=== PATIENT | female | born 1995 | race Hispanic/Latino ===

== ENCOUNTER 2018-04-29 05:09 | Emergency (ER) | payer MEDICAID, OTHER | END 2018-04-29 05:39 | LOC: EDH 05:09 | DX: Z02.83 Encounter for blood-alcohol and blood-drug test (principal) ==

== ENCOUNTER 2019-02-04 16:10 | Emergency (ER) | payer OTHER ==
[2019-02-04] MEDS ORDERED: SODIUM CHLORIDE 0.9% 1000ML 1,000 ML IV ONE (17:06)
[2019-02-04 17:11] LABS: BASOPHILS % (AUTO) 0.6 % (0.0-5.0); EOSINOPHILS % (AUTO) 1.3 % (0.0-8.0); HEMATOCRIT 38.3 % (36-48); LYMPHOCYTES % (AUTO) 23.3 % (21.0-51.0); MEAN CORPUSCULAR HGB CONC 33.2 g/dL (32.0-36.0); MEAN CORPUSCULAR VOLUME 84.6 fL (79-99); NEUTROPHILS % (AUTO) 68.8 % (40.0-77.0); PLATELET COUNT (AUTO) 403 K/uL (130-400); RED BLOOD CELL COUNT(AUTO) 4.52 MIL/uL (4.00-5.50); RED CELL DISTRIBUTION WIDTH 14.2 % (11.0-15.5); WHITE BLOOD COUNT (AUTO) 15.5 K/uL (4.8-10.8)
[2019-02-04 17:12] LABS: APPEARANCE,URINE SL CLOUDY (CLEAR); BILIRUBIN,URINE NEGATIVE (NEGATIVE); COLOR,URINE YELLOW (YELLOW); GLUCOSE, URINE (UA) >=1000 mg/dL (NEGATIVE); KETONES,URINE 5 mg/dL (NEGATIVE); LEUKOCYTE ESTERASE ,URINE SMALL (NEGATIVE); NITRATE,URINE NEGATIVE (NEGATIVE); OCCULT BLOOD,URINE TRACE-INTACT (NEGATIVE); PROTEIN,URINE NEGATIVE (NEGATIVE); UROBILINOGEN,URINE 0.2 mg/dL (0.2-1.0)
[2019-02-04 17:21] LABS: HCG,QUAL RESULT POSITIVE (NEGATIVE)
[2019-02-04 17:23] LABS: CREATININE 0.8 mg/dL (0.5-1.5); POTASSIUM 3.7 mmol/L (3.5-5.1)
[2019-02-04 17:27] LABS: ALBUMIN 3.3 g/dL (3.5-5.0); BILIRUBIN,TOTAL 0.1 mg/dL (0.2-1.0); TOTAL PROTEIN, SERUM 7.3 g/dL (6.0-8.3)
[2019-02-04 17:29] LABS: BACTERIA,URINE Few /HPF (None Seen); SQUAMOUS EPITHELIAL CELL,UR Few /HPF (0-2); WBC,URINE 26-50 /HPF (0-1)
[2019-02-04] MEDS ORDERED: CEFTRIAXONE SODIUM 1 GM ONE (18:36)
== END 2019-02-04 19:02 | disposition home or self-care (01) ==
LOC: EDH 16:10
DX: O23.11 Infections of bladder in pregnancy, first trimester (principal); E11.9 Type 2 diabetes mellitus without complications; Z3A.01 Less than 8 weeks gestation of pregnancy
CPT/HCPCS: 36415; 76856; 80053; 81001; 81025; 82948; 83690; 84702; 85025; 87077; 87088; 87186; 96374; 99285; J0696; J7030

== ENCOUNTER 2019-02-22 12:10 | Observation (INO) | payer OTHER ==
[~2019-02-22] VITALS: Ht 157.5 cm; Wt 90.5 kg
[2019-02-22 12:33] VITALS: BP 121/65
--- NOTE | 2019-02-22 12:33 | NUR ---
SPOKE WITH CARIDAD SHELTON TO INFORM ON 272 GLUCOSE WHILE BEING ADMITTED. NO NEW ORDERS RECEIVED.
--- NOTE | 2019-02-22 12:50 | NUR ---
EDUCATION EDUCATED PATIENT ON HOW TO DRAW UP INSULIN AND ADMINISTRATION(LOCATIONS AND TECHNIQUES) . HANDOUTS HIGHLIGHTED AND REVIEWED WITH PATIENT. DEMONSTRATION ON HOW TO DRAW UP INSULIN WITH SALINE. POSITIVE PATIENT TEACH BACK UTILIZED.
[2019-02-22] MEDS ORDERED: GLYB5TAB8 PO (12:57)
[2019-02-22 16:05] VITALS: BP 117/62
[2019-02-22] MEDS: INSULIN HUMULIN R 100 UNIT/ML 3ML SQ SCH (16:27)
[2019-02-22] MEDS: INSULIN NPH 100 UNIT/ML 3ML SQ SCH (16:28)
--- NOTE | 2019-02-22 16:28 | NUR ---
INSULIN ADMINISTERED ORDERED. DEMONSTRATION GIVEN TO PATIENT ON HOW TO DRAW UP AND ADMINISTER. PATIENT VOICED UNDERSTANDING.
[2019-02-22] MEDS ORDERED: ACETAMINOPHEN 325 MG TAB PO PRN (16:45)
[2019-02-22 19:29] VITALS: BP 123/75
[2019-02-22 23:20] VITALS: BP 126/77
[2019-02-23 03:43] VITALS: BP 133/71
[2019-02-23] MEDS: INSULIN NPH 100 UNIT/ML 3ML SQ SCH ×2 (07:26→16:42)
[2019-02-23] MEDS: INSULIN HUMULIN R 100 UNIT/ML 3ML SQ SCH ×3 (07:27→16:43)
[2019-02-23 07:47] VITALS: BP 121/75
--- NOTE | 2019-02-23 08:10 | NUR ---
HOWIE BURDICK CNM ROUNDING ON PATIENT. POC DISCUSSED. INSULIN ADJUSTED (REGULAR 14 UNITS NPH1 UNITS AM/PM) 5 UNITS REGULAR ACLUNCH. MAIN ENTREE COOK AND CASHIER CONSULT ORDERED.
--- NOTE | 2019-02-23 08:25 | NUR ---
CONSULT SPOKE WITH 3RD FLOOR DIAMOND SIZER CAROL. NO CAR SERVICER AVAILABLE IN HOSPITAL.
--- NOTE | 2019-02-23 10:49 | NUR ---
DC PLAN VISITED WITH PATIENT. LIVES WITH PARENTS. PATIENT INDEPENDENT ABLE TO PERFORM ADL'S. PATIENT HAS NO SERVICES OR DME'S. FEELS SAFE TO RETURN HOME. Addendum: 02/23/19 at 1058 by ANUJ GODWIN RN CM Amended: Links added.
--- NOTE | 2019-02-23 10:56 | NUR ---
Gestation al diabetes diet education: Printed handouts provided on Gestational diabetes. Reviewed CHO counting, portion control and food alternatives with patient. Pt. verbalized understanding. Addendum: 02/23/19 at [address] Amended: Links added.
--- NOTE | 2019-02-23 10:57 | NUR ---
Nutrition Intervention: Nutrition consult for diabetes education. Pt. 5 weeks IUP. Pt. reports current wt. of 200# was before . Pt. on 75gm CCD diet with good p.o. intake, as per pt. Labs reviewed(BG 137). LBM: 02/22/19. BMI: 36.8, Obesity Grade 2. Pt. educated on Gestational Diabetes Nutrition Therapy diet and provided with education material. Pt. verbalized understanding. Recommendations: 1) Continue current diet. 2) Gestational diabetes nutrition therapy diet education given to patient. 3) Continue to monitor pt's nutritional status. 4) Consult RD as nutrition concerns arise.
[2019-02-23 11:16] VITALS: BP 121/73
[2019-02-23 15:17] VITALS: BP 118/70
[2019-02-23 20:10] VITALS: BP 124/83
[2019-02-24 00:07] VITALS: BP 108/74
[2019-02-24 03:37] VITALS: BP 123/59
[2019-02-24 07:20] VITALS: BP 100/76
--- NOTE | 2019-02-24 07:30 | NUR ---
PT. ISIS UP BOTH AM INSULIN AND INJECTED SELF; WITNESSED BY ALVINO MEJIA AND SANTANA ALCALA. PT. DID IT PERFECTLY.
[2019-02-24] MEDS: INSULIN NPH 100 UNIT/ML 3ML SQ SCH (07:31)
[2019-02-24] MEDS: INSULIN HUMULIN R 100 UNIT/ML 3ML SQ SCH ×2 (07:32→12:06)
[2019-02-24 11:41] VITALS: BP 121/90
--- NOTE | 2019-02-24 12:00 | NUR ---
PT WASHED HANDS AND ISIS UP 5 UNITS OF REGULAR INSULIN AND SELF ADMINISTERED TO ABDOMEN SQ.
--- NOTE | 2019-02-24 13:10 | NUR ---
PHYSICIAN ROUNDING DR. LLANES AT BEDSIDE TO ASSESS AND TALK TO PT. NEW ORDERS RECEIVED FOR DISCHARGE.
--- NOTE | 2019-02-24 13:55 | NUR ---
DISCHARGE PT LEFT UNIT AMBULATING, ACCOMPANIED BY SIGNIFICANT OTHER. DENIED PAIN AND HAD NO COMPLAINTS. TRANSPORTED BY PERSONAL VEHICLE.
== END 2019-02-24 13:55 | disposition home or self-care (01) ==
LOC: WSH 12:10
PROVIDERS: ADMIT Obstetrics & Gynecology; ATTEND Obstetrics & Gynecology
DX: O24.911 Unspecified diabetes mellitus in pregnancy, first trimester (principal); O09.891 Supervision of other high risk pregnancies, first trimester; O99.211 Obesity complicating pregnancy, first trimester; O23.91 Unspecified genitourinary tract infection in pregnancy, first trimester; Z79.4 Long term (current) use of insulin; Z3A.01 Less than 8 weeks gestation of pregnancy
CPT/HCPCS: 82948 ×14; 96372 ×3; G0378 ×50; J1815 ×9

== ENCOUNTER 2019-03-01 15:43 | Emergency (ER) | payer OTHER, MEDICAID ==
[2019-03-01 16:26] LABS: BASOPHILS % (AUTO) 0.5 % (0.0-5.0); EOSINOPHILS % (AUTO) 4.2 % (0.0-8.0); HEMATOCRIT 35.4 % (36-48); LYMPHOCYTES % (AUTO) 28.1 % (21.0-51.0); MEAN CORPUSCULAR HEMOGLOBIN 27.9 pg (27.0-33.0); MEAN CORPUSCULAR HGB CONC 33.1 g/dL (32.0-36.0); MEAN CORPUSCULAR VOLUME 84.4 fL (79-99); MONOCYTES % (AUTO) 6.5 % (3.0-13.0); NEUTROPHILS % (AUTO) 60.7 % (40.0-77.0); PLATELET COUNT (AUTO) 404 K/uL (130-400); RED CELL DISTRIBUTION WIDTH 13.8 % (11.0-15.5); WHITE BLOOD COUNT (AUTO) 12.3 K/uL (4.8-10.8)
[2019-03-01 16:46] LABS: CREATININE 0.6 mg/dL (0.5-1.5)
[2019-03-01 17:00] LABS: APPEARANCE,URINE Clear (CLEAR); BILIRUBIN,URINE Negative (NEGATIVE); COLOR,URINE Yellow (YELLOW); GLUCOSE, URINE (UA) Negative (NEGATIVE); KETONES,URINE Negative (NEGATIVE); LEUKOCYTE ESTERASE ,URINE Moderate (NEGATIVE); NITRATE,URINE Negative (NEGATIVE); OCCULT BLOOD,URINE Large (NEGATIVE); PROTEIN,URINE Negative (NEGATIVE); UROBILINOGEN,URINE 0.2 mg/dL (0.2-1.0)
[2019-03-01 17:22] LABS: RBC,URINE 0-1 /HPF (0-1)
[2019-03-01 17:23] LABS: BACTERIA,URINE Few /HPF (None Seen); SQUAMOUS EPITHELIAL CELL,UR Few /HPF (0-2)
[2019-03-01 17:24] LABS: YEAST,URINE BUDDING Rare /HPF (None Seen)
== END 2019-03-01 19:16 | disposition home or self-care (01) ==
LOC: EDH 15:43
DX: O20.0 Threatened abortion (principal); E11.9 Type 2 diabetes mellitus without complications; Z3A.01 Less than 8 weeks gestation of pregnancy
CPT/HCPCS: 36415; 76801; 80048; 81001; 84702; 85025; 86900; 86901

== ENCOUNTER 2019-03-07 10:57 | Emergency (ER) | payer OTHER, MEDICAID ==
[2019-03-07] MEDS ORDERED: ACETAMINOPHEN 325 MG TAB ONE (11:30)
[2019-03-07 11:39] LABS: BASOPHILS % (AUTO) 0.5 % (0.0-5.0); EOSINOPHILS % (AUTO) 2.5 % (0.0-8.0); LYMPHOCYTES % (AUTO) 22.9 % (21.0-51.0); MEAN CORPUSCULAR HEMOGLOBIN 28.1 pg (27.0-33.0); MEAN CORPUSCULAR HGB CONC 33.3 g/dL (32.0-36.0); MEAN CORPUSCULAR VOLUME 84.2 fL (79-99); MONOCYTES % (AUTO) 5.9 % (3.0-13.0); NEUTROPHILS % (AUTO) 68.2 % (40.0-77.0); NUCLEATED RED BLOOD CELLS 0.1 % (0.0-0.19); PLATELET COUNT (AUTO) 403 K/uL (130-400); RED BLOOD CELL COUNT(AUTO) 4.27 MIL/uL (4.00-5.50); RED CELL DISTRIBUTION WIDTH 13.2 % (11.0-15.5); WHITE BLOOD COUNT (AUTO) 13.2 K/uL (4.8-10.8)
== END 2019-03-07 12:49 | disposition home or self-care (01) ==
LOC: EDH 10:57
DX: O20.0 Threatened abortion (principal); E11.9 Type 2 diabetes mellitus without complications; Z3A.09 9 weeks gestation of pregnancy
CPT/HCPCS: 36415; 84702; 85025

== ENCOUNTER 2019-10-03 16:58 | Emergency (ER) | payer OTHER, MEDICAID ==
[2019-10-03 17:44] LABS: APPEARANCE,URINE Clear (CLEAR); BILIRUBIN,URINE Negative (NEGATIVE); COLOR,URINE Yellow (YELLOW); GLUCOSE, URINE (UA) TRACE mg/dL (NEGATIVE); KETONES,URINE Negative (NEGATIVE); LEUKOCYTE ESTERASE ,URINE Small (NEGATIVE); NITRATE,URINE Negative (NEGATIVE); OCCULT BLOOD,URINE Negative (NEGATIVE); PH,URINE 5.5 (5.0-8.0); PROTEIN,URINE Negative (NEGATIVE); UROBILINOGEN,URINE 0.2 mg/dL (0.2-1.0)
[2019-10-03 17:53] LABS: BASOPHILS % (AUTO) 0.3 % (0.0-5.0); EOSINOPHILS % (AUTO) 1.3 % (0.0-8.0); HEMATOCRIT 37.8 % (36-48); LYMPHOCYTES % (AUTO) 29.9 % (21.0-51.0); MEAN CORPUSCULAR HEMOGLOBIN 26.1 pg (27.0-33.0); MEAN CORPUSCULAR VOLUME 81.5 fL (79-99); MONOCYTES % (AUTO) 4.6 % (3.0-13.0); NEUTROPHILS % (AUTO) 63.6 % (40.0-77.0); PLATELET COUNT (AUTO) 453 K/uL (130-400); RED BLOOD CELL COUNT(AUTO) 4.64 MIL/uL (4.00-5.50); RED CELL DISTRIBUTION WIDTH 13.3 % (11.0-15.5); WHITE BLOOD COUNT (AUTO) 14.9 K/uL (4.8-10.8)
[2019-10-03 17:55] LABS: HCG,QUAL RESULT NEGATIVE (NEGATIVE)
[2019-10-03 18:02] LABS: CREATININE 0.7 mg/dL (0.5-1.5); POTASSIUM 3.8 mmol/L (3.5-5.1)
[2019-10-03] MEDS ORDERED: MORPHINE SULFATE 2 MG/ML 1ML SYG ONE (18:05)
[2019-10-03] MEDS ORDERED: ONDANSETRON HCL 4 MG/2 ML VIAL ONE (18:05)
[2019-10-03 18:07] LABS: ALBUMIN 3.8 g/dL (3.5-5.0); BILIRUBIN,TOTAL 0.3 mg/dL (0.2-1.0); TOTAL PROTEIN, SERUM 7.9 g/dL (6.0-8.3)
[2019-10-03 18:08] LABS: BACTERIA,URINE Few /HPF (None Seen)
[2019-10-03 18:09] LABS: RBC,URINE None Seen /HPF (0-1)
[2019-11-02] MEDS ORDERED: GLYB1TAB32 PO (16:11)
[2019-11-02] MEDS ORDERED: INSU100V37 SQ (16:11)
== END 2019-10-03 20:24 | disposition home or self-care (01) ==
LOC: EDH 16:58
DX: K52.9 Noninfective gastroenteritis and colitis, unspecified (principal); K80.20 Calculus of gallbladder without cholecystitis without obstruction; E11.9 Type 2 diabetes mellitus without complications
CPT/HCPCS: 36415; 76705; 80053; 81001; 81025; 83690; 85025; 96374; 96375; 99284; J2405

== ENCOUNTER 2019-11-05 07:30 | Day surgery (SDC) | payer OTHER, MEDICAID ==
[2019-10-31 10:07] LABS: BASOPHILS % (AUTO) 0.3 % (0.0-5.0); EOSINOPHILS % (AUTO) 2.6 % (0.0-8.0); HEMATOCRIT 36.2 % (36-48); LYMPHOCYTES % (AUTO) 26.7 % (21.0-51.0); MEAN CORPUSCULAR HEMOGLOBIN 25.7 pg (27.0-33.0); MEAN CORPUSCULAR HGB CONC 31.2 g/dL (32.0-36.0); MEAN CORPUSCULAR VOLUME 82.5 fL (79-99); MONOCYTES % (AUTO) 5.5 % (3.0-13.0); NEUTROPHILS % (AUTO) 64.6 % (40.0-77.0); PLATELET COUNT (AUTO) 480 K/uL (130-400); RED BLOOD CELL COUNT(AUTO) 4.39 MIL/uL (4.00-5.50); RED CELL DISTRIBUTION WIDTH 13.3 % (11.0-15.5); WHITE BLOOD COUNT (AUTO) 13.9 K/uL (4.8-10.8)
[2019-10-31 10:29] LABS: INR 0.98 (0.85-1.15); PARTIAL THROMBOPLASTIN TIME 28.3 SEC (26.3-35.5); PROTHROMBIN TIME 10.6 SEC (9.6-11.6)
[2019-10-31 10:32] LABS: ALBUMIN 3.4 g/dL (3.5-5.0); BILIRUBIN,TOTAL 0.2 mg/dL (0.2-1.0); CREATININE 0.6 mg/dL (0.5-1.5); TOTAL PROTEIN, SERUM 7.4 g/dL (6.0-8.3)
[2019-10-31 10:39] VITALS: BP 140/83
[2019-11-02 15:53] VITALS: BP 140/83
--- NOTE | 2019-11-02 16:29 | NUR ---
Re: CBC results Spoke to Dr. Bruce and made her aware of pt's CBC results. asked if pt was symptomatic. Informed Dr. Bruce that nurse had just spoken to pt and pt denied any c/o. No further orders given
[~2019-11-05] VITALS: Ht 160 cm; Wt 95.9 kg
[2019-11-05] VITALS (18 sets, daily range): BP systolic 102–130; BP diastolic 46–96
[~2019-11-05 07:30] MED LIST: CEFAZOLIN SODIUM 1 GM VIAL IVP SCH; GLYB1TAB32 PO; INSU100V37 SQ
[2019-11-05] MEDS ORDERED: SODIUM CHLORIDE 0.9% 1000ML 1,000 ML IV ONE (08:53)
[2019-11-05] MEDS ORDERED: SUCCINYLCHOLINE CHLORIDE 20 MG/ML 10 ML VIAL ONE (11:18)
[2019-11-05] MEDS ORDERED: PROPOFOL 10 MG/ML 20ML VIAL IV ONE (11:18)
[2019-11-05] MEDS ORDERED: ROCURONIUM 10MG/1ML SYR 10 MG/ML ML ONE (11:18)
[2019-11-05] MEDS ORDERED: LIDOCAINE PF 2% 5ML ABBOJECT ONE (11:18)
[2019-11-05] MEDS ORDERED: FENTANYL CITRATE PF 50 MCG/1 ML 2ML VIAL ONE ×2 (11:20→12:28)
[2019-11-05] MEDS ORDERED: MIDAZOLAM HCL 1 MG/ML 2ML VIAL ONE (11:28)
[2019-11-05] MEDS ORDERED: BUPIVACAINE/PF 0.5% 30ML VIAL ONE (11:41)
[2019-11-05] MEDS ORDERED: NEOSTIGMINE 5MG/5ML SYR IV ONE (12:19)
[2019-11-05] MEDS ORDERED: GLYCOPYRROLATE 1 MG/5 ML SYRINGE ONE (12:19)
[2019-11-05] MEDS ORDERED: KETOROLAC TROMETHAMINE 30MG/ML ONE (12:19)
[2019-11-05] MEDS ORDERED: ONDANSETRON HCL 4 MG/2 ML VIAL ONE (12:19)
[2019-11-05] MEDS ORDERED: MEPERIDINE-PF 25 MG/ML SYG ONE ×3 (12:19→13:08)
== END 2019-11-05 14:42 | disposition home or self-care (01) ==
LOC: DAH 07:30
PROVIDERS: ATTEND Student in an Organized Health Care Education/Training Program
DX: K80.13 Calculus of gallbladder with acute and chronic cholecystitis with obstruction (principal); Z11.59 Encounter for screening for other viral diseases; E11.9 Type 2 diabetes mellitus without complications; E66.9 Obesity, unspecified; Z79.899 Other long term (current) drug therapy; Z79.01 Long term (current) use of anticoagulants
CPT/HCPCS: 36415; 47562; 80053; 82948 ×3; 84703; 85025; 85610; 85730; A4649 ×3; A4930 ×3; A6206; A6260; C1769 ×3; J0330; J0690; J1885; J2001; J2175 ×3; J2250; J2405; J2704; J2710; J3010 ×2; J3490 ×2; J7030 ×2; U0003

== ENCOUNTER 2020-02-22 11:24 | Emergency (ER) | payer OTHER, MEDICAID ==
[~2020-02-22 11:24] MED LIST changes: -CEFAZOLIN SODIUM 1 GM VIAL IVP SCH
[2020-02-22 11:52] LABS: BASOPHILS % (AUTO) 0.3 % (0.0-5.0); EOSINOPHILS % (AUTO) 2.4 % (0.0-8.0); MEAN CORPUSCULAR HEMOGLOBIN 25.6 pg (27.0-33.0); MEAN CORPUSCULAR HGB CONC 32.1 g/dL (32.0-36.0); MONOCYTES % (AUTO) 4.7 % (3.0-13.0); NEUTROPHILS % (AUTO) 67.2 % (40.0-77.0); PLATELET COUNT (AUTO) 466 K/uL (130-400); RED BLOOD CELL COUNT(AUTO) 4.25 MIL/uL (4.00-5.50); RED CELL DISTRIBUTION WIDTH 14.2 % (11.0-15.5); WHITE BLOOD COUNT (AUTO) 15.1 K/uL (4.8-10.8)
[2020-02-22 12:02] LABS: CREATININE 0.7 mg/dL (0.5-1.5); POTASSIUM 3.9 mmol/L (3.5-5.1)
[2020-02-22 12:38] LABS: RAPID GROUP A STREP NEGATIVE (NEGATIVE)
== END 2020-02-22 13:16 | disposition home or self-care (01) ==
LOC: EDH 11:24
DX: J20.8 Acute bronchitis due to other specified organisms (principal); E10.65 Type 1 diabetes mellitus with hyperglycemia; Z20.828 Contact with and (suspected) exposure to other viral communicable diseases; Z90.49 Acquired absence of other specified parts of digestive tract
CPT/HCPCS: 36415; 71045; 80048; 85025; 87426; 87804 ×2; 87880; 99284; U0003

== ENCOUNTER → 2020-12-17 | Outpatient (CLI) | payer OTHER, MEDICAID | END | disposition home or self-care (01) | LOC: LAB 12:19 | PROVIDERS: ATTEND Internal Medicine Cardiovascular Disease | DX: Z12.31 Encounter for screening mammogram for malignant neoplasm of breast (principal) | CPT/HCPCS: C9803; U0003 ==

== ENCOUNTER 2021-02-27 09:51 | Emergency (ER) | payer OTHER, MEDICAID ==
[~2021-02-27] VITALS: Ht 154.9 cm; Wt 96.6 kg
[2021-02-27 10:49] LABS: BASOPHILS % (AUTO) 0.3 % (0.0-5.0); EOSINOPHILS % (AUTO) 1.5 % (0.0-8.0); HEMATOCRIT 34.9 % (36-48); LYMPHOCYTES % (AUTO) 25.1 % (21.0-51.0); MEAN CORPUSCULAR HEMOGLOBIN 26.7 pg (27.0-33.0); MEAN CORPUSCULAR HGB CONC 31.8 g/dL (32.0-36.0); MEAN CORPUSCULAR VOLUME 83.9 fL (79-99); MONOCYTES % (AUTO) 4.7 % (3.0-13.0); NEUTROPHILS % (AUTO) 67.9 % (40.0-77.0); PLATELET COUNT (AUTO) 402 K/uL (130-400); RED BLOOD CELL COUNT(AUTO) 4.16 MIL/uL (4.00-5.50); RED CELL DISTRIBUTION WIDTH 14.6 % (11.0-15.5); WHITE BLOOD COUNT (AUTO) 15.2 K/uL (4.8-10.8)
[2021-02-27 10:55] LABS: APPEARANCE,URINE Cloudy (CLEAR); BILIRUBIN,URINE Negative (NEGATIVE); COLOR,URINE Yellow (YELLOW); GLUCOSE, URINE (UA) >=1000 mg/dL (NEGATIVE); KETONES,URINE 15 mg/dL (NEGATIVE); LEUKOCYTE ESTERASE ,URINE Moderate (NEGATIVE); NITRATE,URINE Positive (NEGATIVE); OCCULT BLOOD,URINE Large (NEGATIVE); PROTEIN,URINE Negative (NEGATIVE); UROBILINOGEN,URINE 0.2 mg/dL (0.2-1.0)
[2021-02-27 11:09] LABS: BACTERIA,URINE Moderate /HPF (None Seen)
[2021-02-27 12:37] LABS: ALBUMIN 3.3 g/dL (3.5-5.0); BILIRUBIN,TOTAL 0.2 mg/dL (0.2-1.0); CREATININE 0.6 mg/dL (0.5-1.5); POTASSIUM 4.3 mmol/L (3.5-5.1); TOTAL PROTEIN, SERUM 7.2 g/dL (6.0-8.3)
[2021-02-27] MEDS ORDERED: CEPH500B PO (14:47)
[2021-02-27 14:53] VITALS: BP 124/68
[2021-02-27] MEDS ORDERED: CEFTRIAXONE 1G VIAL IVP ONE (16:00)
== END 2021-02-27 15:06 | disposition home or self-care (01) ==
LOC: EDH 09:51
DX: O03.9 Complete or unspecified spontaneous abortion without complication (principal); Z3A.01 Less than 8 weeks gestation of pregnancy
CPT/HCPCS: 36415; 76801; 80053; 81001; 84702; 84703; 85025; 86850; 86900; 86901; 87077; 87088; 87186

== ENCOUNTER → 2021-04-15 | Outpatient (CLI) | payer OTHER ==
[~2021-04-15] VITALS: Ht 3.8 cm; Wt 98.9 kg
[~2021-04-15] MED LIST changes: +CEPH500B PO
== END | disposition home or self-care (01) ==
LOC: DTH 14:54
PROVIDERS: ATTEND Surgery
DX: Z71.3 Dietary counseling and surveillance (principal); E11.9 Type 2 diabetes mellitus without complications; E66.01 Morbid (severe) obesity due to excess calories; Z68.41 Body mass index [BMI] 40.0-44.9, adult
CPT/HCPCS: 97802

== ENCOUNTER → 2021-07-03 | Outpatient (CLI) | payer OTHER | END | disposition home or self-care (01) | LOC: DTH 14:52 | PROVIDERS: ATTEND Surgery | DX: Z71.3 Dietary counseling and surveillance (principal); E66.01 Morbid (severe) obesity due to excess calories; E11.9 Type 2 diabetes mellitus without complications | CPT/HCPCS: 97803 ==

== ENCOUNTER 2021-09-12 22:31 | Emergency (ER) | payer OTHER, MEDICAID ==
[~2021-09-12] VITALS: Ht 157.5 cm; Wt 97.5 kg
[2021-09-12 23:12] LABS: BASOPHILS % (AUTO) 0.2 % (0.0-5.0); HEMATOCRIT 32.4 % (36-48); MEAN CORPUSCULAR HEMOGLOBIN 26.8 pg (27.0-33.0); MEAN CORPUSCULAR HGB CONC 32.1 g/dL (32.0-36.0); MEAN CORPUSCULAR VOLUME 83.5 fL (79-99); MONOCYTES % (AUTO) 5.7 % (3.0-13.0); NEUTROPHILS % (AUTO) 52.8 % (40.0-77.0); PLATELET COUNT (AUTO) 424 K/uL (130-400); RED BLOOD CELL COUNT(AUTO) 3.88 MIL/uL (4.00-5.50); RED CELL DISTRIBUTION WIDTH 13.6 % (11.0-15.5); WHITE BLOOD COUNT (AUTO) 12.7 K/uL (4.8-10.8)
[2021-09-12 23:13] LABS: APPEARANCE,URINE Clear (CLEAR); BILIRUBIN,URINE Negative (NEGATIVE); COLOR,URINE Yellow (YELLOW); GLUCOSE, URINE (UA) Negative (NEGATIVE); KETONES,URINE Negative (NEGATIVE); LEUKOCYTE ESTERASE ,URINE Trace (NEGATIVE); NITRATE,URINE Negative (NEGATIVE); OCCULT BLOOD,URINE Small (NEGATIVE); PH,URINE 6.5 (5.0-8.0); PROTEIN,URINE Negative (NEGATIVE); UROBILINOGEN,URINE 0.2 mg/dL (0.2-1.0)
[2021-09-12 23:21] LABS: CREATININE 0.5 mg/dL (0.5-1.5); POTASSIUM 3.8 mmol/L (3.5-5.1)
[2021-09-12] MEDS ORDERED: CEFTRIAXONE 1G VIAL IM ONE (23:30)
[2021-09-12 23:38] LABS: RBC,URINE 0-1 /HPF (0-1)
[2021-09-12 23:39] LABS: WBC,URINE 0-1 /HPF (0-1)
[2021-09-12 23:40] LABS: BACTERIA,URINE Few /HPF (None Seen); SQUAMOUS EPITHELIAL CELL,UR Few /HPF (0-2)
[2021-09-12 23:47] LABS: ALBUMIN 3.2 g/dL (3.5-5.0); BILIRUBIN,TOTAL 0.1 mg/dL (0.2-1.0); TOTAL PROTEIN, SERUM 7.1 g/dL (6.0-8.3)
[2021-09-13 01:00] VITALS: BP 117/58
== END 2021-09-13 01:38 | disposition home or self-care (01) ==
LOC: EDH 22:31
DX: O20.0 Threatened abortion (principal); Z79.84 Long term (current) use of oral hypoglycemic drugs; Z3A.01 Less than 8 weeks gestation of pregnancy
CPT/HCPCS: 36415; 76801; 80053; 81001; 84702; 85025; 86900; 86901; 96372; 99284; J0696

== ENCOUNTER 2021-09-18 07:42 | Emergency (ER) | payer OTHER, MEDICAID ==
[~2021-09-18] VITALS: Ht 157.5 cm; Wt 97.5 kg
[2021-09-18 07:43] VITALS: BP 131/79
[2021-09-18 08:04] LABS: BASOPHILS % (AUTO) 0.3 % (0.0-5.0); HEMATOCRIT 35.8 % (36-48); LYMPHOCYTES % (AUTO) 31.5 % (21.0-51.0); MEAN CORPUSCULAR HEMOGLOBIN 25.9 pg (27.0-33.0); MEAN CORPUSCULAR VOLUME 83.6 fL (79-99); NEUTROPHILS % (AUTO) 58.9 % (40.0-77.0); PLATELET COUNT (AUTO) 427 K/uL (130-400); RED BLOOD CELL COUNT(AUTO) 4.28 MIL/uL (4.00-5.50); RED CELL DISTRIBUTION WIDTH 13.6 % (11.0-15.5); WHITE BLOOD COUNT (AUTO) 11.9 K/uL (4.8-10.8)
[2021-09-18 08:13] LABS: CREATININE 0.5 mg/dL (0.5-1.5); POTASSIUM 4.1 mmol/L (3.5-5.1)
[2021-09-18 08:18] LABS: ALBUMIN 3.5 g/dL (3.5-5.0); BILIRUBIN,TOTAL 0.2 mg/dL (0.2-1.0); TOTAL PROTEIN, SERUM 7.5 g/dL (6.0-8.3)
[2021-09-18] MEDS ORDERED: MORPHINE 4 MG SYG IVP ONE (08:30)
[2021-09-18] MEDS ORDERED: ONDANSETRON 4MG INJ IVP ONE (08:30)
[2021-09-18] MEDS ORDERED: 0.9%NACL 1000ML 1,000 ML IV ONE (08:30)
[2021-09-18] MEDS ORDERED: ACET-2079 PO (10:10)
== END 2021-09-18 10:22 | disposition home or self-care (01) ==
LOC: EDH 07:42
DX: O03.4 Incomplete spontaneous abortion without complication (principal); Z79.84 Long term (current) use of oral hypoglycemic drugs
CPT/HCPCS: 36415; 76817; 80053; 84702; 85025; 96361; 96374; 96375; 99284; J2270; J2405; J7030

== ENCOUNTER → 2021-10-02 | Outpatient (CLI) | payer OTHER ==
[~2021-10-02] MED LIST changes: +ACET-2079 PO
== END | disposition home or self-care (01) ==
LOC: DTH 14:27
PROVIDERS: ATTEND Surgery
DX: Z71.3 Dietary counseling and surveillance (principal); E11.9 Type 2 diabetes mellitus without complications; E66.01 Morbid (severe) obesity due to excess calories; Z68.41 Body mass index [BMI] 40.0-44.9, adult
CPT/HCPCS: 97803

== ENCOUNTER → 2021-10-30 | Outpatient (CLI) | payer OTHER | END | disposition home or self-care (01) | LOC: RAH 10:45 | PROVIDERS: ATTEND Internal Medicine | DX: Z01.818 Encounter for other preprocedural examination (principal); E66.01 Morbid (severe) obesity due to excess calories; Z68.41 Body mass index [BMI] 40.0-44.9, adult | CPT/HCPCS: 71046 ==

== ENCOUNTER 2021-12-30 16:40 | Emergency (ER) | payer OTHER, MEDICAID ==
[~2021-12-30] VITALS: Ht 157.5 cm; Wt 98.9 kg
[~2021-12-30 16:40] MED LIST changes: -ACET-2079 PO; -CEPH500B PO; +GLYB-173 PO; -GLYB1TAB32 PO; +INSU100V12 SQ; -INSU100V37 SQ
[2021-12-30 16:45] VITALS: BP 129/78
[2021-12-30 17:29] LABS: BASOPHILS % (AUTO) 0.2 % (0.0-5.0); EOSINOPHILS % (AUTO) 1.3 % (0.0-8.0); HEMATOCRIT 33.9 % (36-48); LYMPHOCYTES % (AUTO) 28.9 % (21.0-51.0); MEAN CORPUSCULAR HEMOGLOBIN 26.2 pg (27.0-33.0); MEAN CORPUSCULAR VOLUME 79.2 fL (79-99); NEUTROPHILS % (AUTO) 64.2 % (40.0-77.0); PLATELET COUNT (AUTO) 497 K/uL (130-400); RED BLOOD CELL COUNT(AUTO) 4.28 MIL/uL (4.00-5.50); RED CELL DISTRIBUTION WIDTH 13.8 % (11.0-15.5); WHITE BLOOD COUNT (AUTO) 16.6 K/uL (4.8-10.8)
[2021-12-30 17:34] LABS: APPEARANCE,URINE CLEAR (CLEAR); BILIRUBIN,URINE NEGATIVE (NEGATIVE); COLOR,URINE YELLOW (YELLOW); GLUCOSE, URINE (UA) NEGATIVE (NEGATIVE); KETONES,URINE NEGATIVE (NEGATIVE); LEUKOCYTE ESTERASE ,URINE NEGATIVE (NEGATIVE); NITRATE,URINE NEGATIVE (NEGATIVE); OCCULT BLOOD,URINE SMALL (NEGATIVE); PROTEIN,URINE NEGATIVE (NEGATIVE); UROBILINOGEN,URINE 0.2 mg/dL (0.2-1.0)
[2021-12-30 17:46] LABS: ALBUMIN 3.6 g/dL (3.5-5.0); CREATININE 0.6 mg/dL (0.5-1.5); POTASSIUM 3.6 mmol/L (3.5-5.1); TOTAL PROTEIN, SERUM 7.7 g/dL (6.0-8.3)
[2021-12-30 18:29] LABS: BACTERIA,URINE Few /HPF (None Seen); RBC,URINE 0-1 /HPF (0-1); SQUAMOUS EPITHELIAL CELL,UR Few /HPF (0-2)
[2021-12-30] MEDS ORDERED: KETOROLAC 15MG/ML VIAL (15MG/ML) IV ONE (18:30)
[2021-12-30] MEDS ORDERED: 0.9%NACL 1000ML 1,000 ML IV ONE (18:30)
[2021-12-30] MEDS ORDERED: ONDA4TAB10 PO (19:47)
[2021-12-30] MEDS ORDERED: ACET-66 PO (19:47)
== END 2021-12-30 20:57 | disposition home or self-care (01) ==
LOC: EDH 16:40
DX: O03.9 Complete or unspecified spontaneous abortion without complication (principal); O24.111 Pre-existing type 2 diabetes mellitus, in pregnancy, first trimester; E11.9 Type 2 diabetes mellitus without complications; Z90.49 Acquired absence of other specified parts of digestive tract; Z79.899 Other long term (current) drug therapy; Z79.84 Long term (current) use of oral hypoglycemic drugs; Z3A.01 Less than 8 weeks gestation of pregnancy
CPT/HCPCS: 99284; 74176; 96374; 76801; 96361; 80053; 84702; 85025; 86900; 86901; 81001; 36415; J7030; J1885

== ENCOUNTER 2022-03-12 12:21 | Emergency (ER) | payer OTHER, MEDICAID ==
[~2022-03-12] VITALS: Ht 157.5 cm; Wt 99.8 kg
[~2022-03-12 12:21] MED LIST changes: +ACET-66 PO; +ONDA4TAB10 PO
[2022-03-12 12:50] LABS: BASOPHILS % (AUTO) 0.3 % (0.0-5.0); EOSINOPHILS % (AUTO) 1.7 % (0.0-8.0); HEMATOCRIT 34.3 % (36-48); LYMPHOCYTES % (AUTO) 27.7 % (21.0-51.0); MEAN CORPUSCULAR HEMOGLOBIN 26.1 pg (27.0-33.0); MEAN CORPUSCULAR HGB CONC 32.4 g/dL (32.0-36.0); MEAN CORPUSCULAR VOLUME 80.7 fL (79-99); MONOCYTES % (AUTO) 5.6 % (3.0-13.0); NEUTROPHILS % (AUTO) 64.4 % (40.0-77.0); PLATELET COUNT (AUTO) 417 K/uL (130-400); RED BLOOD CELL COUNT(AUTO) 4.25 MIL/uL (4.00-5.50); RED CELL DISTRIBUTION WIDTH 14.6 % (11.0-15.5); WHITE BLOOD COUNT (AUTO) 15.1 K/uL (4.8-10.8)
[2022-03-12 13:02] LABS: CREATININE 0.6 mg/dL (0.5-1.5); POTASSIUM 3.4 mmol/L (3.5-5.1)
[2022-03-12 13:03] LABS: APPEARANCE,URINE CLEAR (CLEAR); BILIRUBIN,URINE NEGATIVE (NEGATIVE); COLOR,URINE COLORLESS (YELLOW); GLUCOSE, URINE (UA) NEGATIVE (NEGATIVE); KETONES,URINE NEGATIVE (NEGATIVE); LEUKOCYTE ESTERASE ,URINE NEGATIVE Leu/uL (NEGATIVE); NITRATE,URINE NEGATIVE (NEGATIVE); OCCULT BLOOD,URINE NEGATIVE (NEGATIVE); PROTEIN,URINE NEGATIVE (NEGATIVE); UROBILINOGEN,URINE 0.2 mg/dL (0.2-1.0)
[2022-03-12 13:29] LABS: ALBUMIN 3.4 g/dL (3.5-5.0); TOTAL PROTEIN, SERUM 7.8 g/dL (6.0-8.3)
[2022-03-12 16:17] VITALS: BP 135/77
== END 2022-03-12 16:23 | disposition home or self-care (01) ==
LOC: EDH 12:21
DX: O46.91 Antepartum hemorrhage, unspecified, first trimester (principal); O24.911 Unspecified diabetes mellitus in pregnancy, first trimester; Z79.4 Long term (current) use of insulin; Z90.49 Acquired absence of other specified parts of digestive tract; Z3A.01 Less than 8 weeks gestation of pregnancy
CPT/HCPCS: 36415; 76817; 80053; 81003; 84702; 85025

== ENCOUNTER 2022-06-09 15:31 | Observation (INO) | payer OTHER, MEDICAID ==
[~2022-06-09] VITALS: Ht 157.5 cm; Wt 101.6 kg
[2022-06-09 16:49] VITALS: BP 125/69
[2022-06-09 17:36] LABS: APPEARANCE,URINE CLOUDY (CLEAR); BILIRUBIN,URINE NEGATIVE (NEGATIVE); COLOR,URINE LIGHT-YELLOW (YELLOW); GLUCOSE, URINE (UA) 30 mg/dL (NEGATIVE); KETONES,URINE NEGATIVE (NEGATIVE); LEUKOCYTE ESTERASE ,URINE 250 Leu/uL (NEGATIVE); NITRATE,URINE NEGATIVE (NEGATIVE); OCCULT BLOOD,URINE NEGATIVE (NEGATIVE); PH,URINE 6.5 (5.0-8.0); PROTEIN,URINE NEGATIVE (NEGATIVE); UROBILINOGEN,URINE 0.2 mg/dL (0.2-1.0)
[2022-06-09 17:42] LABS: BACTERIA,URINE MOD /HPF (None Seen); MUCUS,URINE RARE LPF (None Seen); SQUAMOUS EPITHELIAL CELL,UR FEW /HPF (0-2); WBC,URINE 26-50 /HPF (0-1)
[2022-06-09] MEDS ORDERED: ACETAMINOPHEN 500 MG TABLET PO SCH (18:30)
== END 2022-06-09 20:55 | disposition home or self-care (01) ==
LOC: EDH 15:31 → LDH 17:25
PROVIDERS: ADMIT Obstetrics & Gynecology; ATTEND Obstetrics & Gynecology
DX: O99.891 Other specified diseases and conditions complicating pregnancy (principal); M54.50 Low back pain, unspecified; O26.892 Other specified pregnancy related conditions, second trimester; R10.30 Lower abdominal pain, unspecified; Z3A.20 20 weeks gestation of pregnancy; Z79.899 Other long term (current) drug therapy; V89.2XXA Person injured in unspecified motor-vehicle accident, traffic, initial encounter; Y93.89 Activity, other specified; Y92.89 Other specified places as the place of occurrence of the external cause; Y99.8 Other external cause status
CPT/HCPCS: 59025; 87077; 87088; 87186; 82948 ×2; 81001; 76805; G0378 ×3; G0379

== ENCOUNTER 2022-07-20 09:30 | Observation (INO) | payer OTHER, MEDICAID ==
[~2022-07-20] VITALS: Ht 157.5 cm; Wt 101.6 kg
[2022-07-20 09:32] VITALS: BP 124/74
[2022-07-20 11:35] LABS: APPEARANCE,URINE CLEAR (CLEAR); BILIRUBIN,URINE NEGATIVE (NEGATIVE); COLOR,URINE COLORLESS (YELLOW); GLUCOSE, URINE (UA) NEGATIVE (NEGATIVE); KETONES,URINE NEGATIVE (NEGATIVE); LEUKOCYTE ESTERASE ,URINE NEGATIVE Leu/uL (NEGATIVE); NITRATE,URINE NEGATIVE (NEGATIVE); PROTEIN,URINE NEGATIVE (NEGATIVE); UROBILINOGEN,URINE 0.2 mg/dL (0.2-1.0)
[2022-07-20 11:51] LABS: BACTERIA,URINE MOD /HPF (None Seen); RBC,URINE 0-1 /HPF (0-1); SQUAMOUS EPITHELIAL CELL,UR RARE /HPF (0-2)
[2022-07-20] MEDS ORDERED: LACTATED RINGERS 1000ML IV ONE (12:00)
[2022-07-20] MEDS ORDERED: LACTATED RINGERS 1000ML IV SCH (12:00)
== END 2022-07-20 14:17 | disposition home or self-care (01) ==
LOC: EDH 09:30 → NYH 09:56 → LDH 09:57
PROVIDERS: ADMIT Obstetrics & Gynecology; ATTEND Obstetrics & Gynecology
DX: O26.892 Other specified pregnancy related conditions, second trimester (principal); N89.8 Other specified noninflammatory disorders of vagina; O99.891 Other specified diseases and conditions complicating pregnancy; M54.9 Dorsalgia, unspecified; Z3A.26 26 weeks gestation of pregnancy
CPT/HCPCS: 59025; 96360; 96361; 81001; G0378 ×4; G0379; J7120